=== PATIENT | male | born 1955 | race Caucasian/White ===

== ENCOUNTER 2016-10-28 15:50 | Emergency (ER) | payer OTHER ==
[~2016-10-28] VITALS: Ht 190.5 cm; Wt 79.4 kg
--- NOTE | 2016-10-28 16:01 | NUR ---
Patient ambulated to bed 07. Dr. Naranjo at bedside to evaluate patient.
[2016-10-28 16:04] VITALS: BP 124/74
--- NOTE | 2016-10-28 16:04 | NUR ---
PATIENT PRESENTS TO ED WITH C/O FISH HOOK ON LT SMALL FINGER;DENIES N/V/D; SKIN IS PINK/WARM/DRY; AAOX4 WITH EVEN AND STEADY GAIT; LUNGS CLEAR BL; HR EVEN AND REGULAR; PT DENIES ANY FEVER, CP, SOB, OR COUGH AT THIS TIME; PATIENT STATES PAIN OF 3/10 AT THIS TIME; VSS; PATIENT POSITIONED FOR COMFORT; HOB ELEVATED; BEDRAILS UP X2; BED DOWN.
[2016-10-28] MEDS ORDERED: LIDOCAINE 1% ED 50 ML ONE (16:06)
[2016-10-28] MEDS ORDERED: NEOMYCIN/POLYMYXIN/BACITRACIN 0.9 GM/1 PKT TP ONE (16:16)
--- NOTE | 2016-10-28 16:28 | NUR ---
Patient discharged with v/s stable. Written and verbal after care instructions given and explained.Patient alert, oriented and verbalized understanding of instructions. Ambulatory with steady gait. All questions addressed prior to discharge. ID band removed. Patient advised to follow up with PMD. Rx of KEFLEX AND TYLENOL given. Patient educated on indication of medication including possible reaction and side effects. Opportunity to ask questions provided and answered.
[2016-10-28 16:29] VITALS: BP 124/74
== END 2016-10-28 16:28 | disposition home or self-care (01) ==
LOC: MED 15:50
DX: S60.457A Superficial foreign body of left little finger, initial encounter (principal); X58.XXXA Exposure to other specified factors, initial encounter; Y93.23 Activity, snow (alpine) (downhill) skiing, snowboarding, sledding, tobogganing and snow tubing; Y92.89 Other specified places as the place of occurrence of the external cause; Y99.8 Other external cause status
CPT/HCPCS: 10120; 90471; 90715; 99284; J2001